=== PATIENT | male | born 1995 | race Caucasian/White ===

== ENCOUNTER 2017-06-07 23:44 | Emergency (ER) | payer OTHER ==
[2017-06-07] MEDS ORDERED: Morphine 4 MG/ML Syringe IM ONE (23:56)
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
[2017-06-08] MEDS ORDERED: Silver Sulfadiazine 1% Crm 400 GM Jar TOP ONE (00:14)
[2017-06-08] MEDS ORDERED: Ketorolac 60 MG/2 ML SDV IM ONE (00:27)
[2017-06-08] MEDS ORDERED: Silver Sulfadiazine 1% Crm 50 GM Tube TOP ONE (00:27)
[2017-06-08] MEDS ORDERED: Morphine 2 MG/ML Syringe IM ONE (00:27)
[2017-06-08] MEDS ORDERED: Acetaminophen/HYDROcodone 325-5 MG Tab PO ONE (01:06)
[2017-06-08 01:20] VITALS: BP 135/93
== END 2017-06-08 01:10 | disposition home or self-care (01) ==
LOC: FB.ED 23:44
DX: T22.212A Burn of second degree of left forearm, initial encounter (principal); T22.211A Burn of second degree of right forearm, initial encounter; T25.122A Burn of first degree of left foot, initial encounter; T22.111A Burn of first degree of right forearm, initial encounter; T31.0 Burns involving less than 10% of body surface; F32.9 Major depressive disorder, single episode, unspecified; F41.9 Anxiety disorder, unspecified; F17.210 Nicotine dependence, cigarettes, uncomplicated
CPT/HCPCS: 16020; 96372; 99000; 99284; A9270; J1885; J2270